=== PATIENT | male | born 1980 | race Caucasian/White ===

== ENCOUNTER 2020-10-09 00:29 | Emergency (ER) | payer BC ==
[~2020-10-09] VITALS: Ht 185.4 cm; Wt 79.4 kg
--- NOTE | 2020-10-09 01:00 | NUR ---
PT PRESENTED TO THE ER FOR C/O SUDDEN SHARP PAIN ON R SIDE OF THE NECK RADIATING TO R POSTERIOR EAR (-DIZZINESS). PT ALERT AND ORIENTED X3 WITH NON LABORED BREATHING.
--- NOTE | 2020-10-09 01:20 | NUR ---
BLOOD TAKEN AND SENT TO LAB.
[2020-10-09 01:24] LABS: BASOPHILS # (AUTO) 0.1 K/uL (0.0-0.2); BASOPHILS % (AUTO) 0.8 % (0.0-2.0); EOSINOPHILS % (AUTO) 1.8 % (0.0-6.0); HEMATOCRIT 42 % (39-51); HEMOGLOBIN 14.4 g/dL (13.5-17.5); LYMPHOCYTES # (AUTO) 2.2 K/uL (0.8-4.8); MEAN CORPUSCULAR HGB CONC 34 g/dl (31.0-36.0); MEAN CORPUSCULAR VOLUME 87 fL (80-96); MONOCYTES # (AUTO) 0.9 K/uL (0.1-1.30); NEUTROPHILS % (AUTO) 48.4 % (43.0-81.0); PLATELET COUNT (AUTO) 170 K/uL (150-450); RED BLOOD CELL COUNT(AUTO) 4.85 MIL/uL (4.5-6.0); WHITE BLOOD COUNT (AUTO) 6.2 K/uL (4.3-11.0)
[2020-10-09 01:45] LABS: CALCIUM, SERUM 8.5 mg/dL (8.5-10.1)
[2020-10-09] MEDS ORDERED: IV NS 0.9% 250 ML IV ONE (01:57)
[2020-10-09] MEDS ORDERED: IOHEXOL-300 100 ML VIAL IV ONE (01:57)
--- NOTE | 2020-10-09 01:58 | NUR ---
ct at bedside.
--- NOTE | 2020-10-09 02:09 | NUR ---
pt back from ct.
--- NOTE | 2020-10-09 02:55 | NUR ---
Patient discharged to home in stable condition. Written and verbal after care instructions given. Patient verbalizes understanding of instruction AND TO FOLLOW UP WITH PCP. COPY OF RADIOLOGY REPORT GIVEN TO PATIENT. IV REMOVED FROM LEFT AC. NO S/S OF COMPICATIONS AT IV SITE. CATHETER INTACT.
[2020-10-09 03:04] VITALS: BP 120/75
== END 2020-10-09 03:11 | disposition home or self-care (01) ==
LOC: ER 00:34
DX: M54.2 Cervicalgia (principal); Z98.890 Other specified postprocedural states; Z88.0 Allergy status to penicillin
CPT/HCPCS: 36415; 70491; 80048; 85025; 99285; J7050; Q9967